=== PATIENT | female | born 1975 | race Caucasian/White ===

== ENCOUNTER 2020-10-24 18:03 | Emergency (ER) | payer OTHER ==
[~2020-10-24] VITALS: Ht 165.1 cm; Wt 113.6 kg
[2020-10-24 18:10] VITALS: Ht 165.1 cm; Wt 113.6 kg
[2020-10-24] MEDS ORDERED: MEDROL DOSE PACK4 MG PO (19:14)
[2020-10-24] MEDS ORDERED: ZANAFLEX4 MG PO (19:14)
[2020-10-24] MEDS ORDERED: DICLOFENAC SODI50 MG PO (19:14)
[2020-10-24 19:57] VITALS: BP 105/70
== END 2020-10-24 20:01 | disposition home or self-care (01) ==
LOC: D.ER 18:03
DX: M51.16 Intervertebral disc disorders with radiculopathy, lumbar region (principal); M79.604 Pain in right leg; M16.11 Unilateral primary osteoarthritis, right hip